=== PATIENT | female | born 1990 | race Caucasian/White ===

== ENCOUNTER 2025-04-12 13:24 | Emergency (ER) | payer OTHER, SELFPAY ==
[2025-04-12 13:26] VITALS: BP 118/69
--- NOTE | 2025-04-12 14:17 | ED.GENMED ---
History of Present Illness
General
Chief Complaint: Musculo-Skeletal Complaint
Source: patient
Time Seen by Provider: 04/12/25 13:56
History of Present Illness
History of Present Illness:
This patient is a 34-year-old female presents emergency department with complaints of 'tight' feeling the left Achilles area that first developed while Dipti dancing last week. She denies any specific penetrating trauma, 'pop', or sudden onset of
pain. Rather, the pain has been gradual but persistent. She is able to stand and walk without difficulty. Symptoms feel very consistent with prior episodes of Achilles tendinitis. She denies other complaints.
Past History
Past History
ED Past Medical History: None
ED Past Surgical History: None
Social History
Tobacco: Non-smoker
Alcohol: None
Drug: None
Living: alone
Employment: Employed
Phy Exam
Physical Exam
Physical Exam:
GENERAL: Alert , in no apparent distress
NECK: Supple
ENT: o/p clr, mmm.
CARDIAC: Regular rate and rhythm .
LUNGS: Clear breath sounds bilaterally, no acute respiratory distress, no wheezes/rales/rhonchi
NEUROLOGICAL: Alert and oriented, no focal neuro deficits
SKIN: Warm and dry, skin intact.
MUSCULOSKELETAL: No edema, well perfused. Nl rod's test, no specific ttp at achilles insertion, no skin changes There is sl ttp at bilat aspect mid Achiles tendon without swelling or other abnl
PSYCH: Normal and appropriate interaction.
Course
Orders/Labs/Results
Orders:
Orders
04/12/25 14:21
Ibuprofen [Motrin] 800 mg PO NOW STA
Vital Signs
Initial and Last Documented VS:
Initial Vital Signs
Temp Pulse Resp BP Pulse Ox
98 F 58 16 118/69 95
04/12/25 13:26 04/12/25 13:26 04/12/25 13:26 04/12/25 13:26 04/12/25 13:26
Last Documented Vital Signs
Temp Pulse Resp BP Pulse Ox
98 F 58 16 118/69 95
04/12/25 13:26 04/12/25 13:26 04/12/25 13:26 04/12/25 13:26 04/12/25 14:21
*Pulse Oximetry
SaO2: 95
Oxygen Mode of Delivery: Room air
Patient hypoxic: no
*Critical Care Note
Total Time (30-74mins, 75-104mins- exclusive of procedures): Not Applicable
Update Note
Update Note:
Patient presents to the Emergency Department with ___left Achilles area pain
Number and Complexity of Problems Addressed at the Encounter
� Chronic conditions affecting care:
� Acute Exacerbation and/or Progression of Chronic Illness:
� Differential Diagnosis includes: But not limited to Achilles tendon rupture/tear, Achilles tendinitis, heel injury/fracture, etc.
Amount and/or Complexity of Data to be Reviewed and Analyzed
� I performed an independent evaluation of and my interpretation is:
EKG:
CT:
Xrays:
Laboratory Studies:
Other:
� Review of other/old records reveals:
� Clinical information was obtained by an independent historian:
� Prescriptions/Medications Considered but not given:
� Further testing considered but not performed:
Risk of Complications and/or Morbidity or Mortality of Patient Management
� Social determinants of health affecting care:
� Discussion with other providers (PCP, Hospitalists, Consultants, etc):
� Escalation of care including admission/observation vs risk of discharge considered: Clinically exam very consistent with Achilles tendinitis. Given no difficulty ambulating, normal Doty test, no pain at level of insertion,
etc. I have low clinical suspicion for tendon tear. No bony tenderness to suggest bony injury. Patient will be advised to wear a walking boot and close Ortho follow-up. She thinks she has 1 at home and will verify before we discharge her.
ED Attending Note
-
Portions of this chart may have been created with voice recognition software.� Occasional wrong word or��sound alike� substitutions may have occurred due to the inherent limitations of voice recognition software.
Discharge Plan
Departure
Patient Disposition: Home (Routine Discharge)
Date of Disposition: 04/12/25
Time of Disposition: 14:20
Patient with high blood pressure during this ER visit?: No
Condition: Good
Discharge Problem:
Achilles tendinitis
Instructions: Achilles Tendinopathy (DC), Achilles Tendinopathy Exercises
Prescriptions:
No Action
Spironolactone
1 tab PO DAILY
Referrals:
Kris Loyd MD [Active, Orthopedics] - Next open appointment
Activity Restrictions/Additional Instructions:
IF YOU DEVELOP INCREASING OR NEW PAIN, SWELLING, REDNESS, NUMBNESS, DIFFICULTY WALKING OR STANDING, OR OTHER WORRISOME SIGNS, PLEASE RETURN TO THE ER IMMEDIATELY!
Interventions
Interventions:
*Risk Screen - Suicide Last Done: 04/12/25 13:27
*General Assessment Last Done: 04/12/25 15:14
*Neglect/Abuse Screening Last Done: 04/12/25 13:27
*ED- Fall Risk Assessment Last Done: 04/12/25 15:14
*ED COVID-19 Vaccine History Last Done: 04/12/25 15:14
*Nursing Disposition Last Done: 04/12/25 15:14
ED-Musculoskeletal Assessment Last Done: 04/12/25 15:10
Discharge Date and Time
Discharge Date/Time: 04/12/25 15:16
Print Language: [email or web address]
[2025-04-12] MEDS: MOTRIN 800 MG PO (14:56)
== END 2025-04-12 15:16 | disposition home or self-care (01) ==
LOC: EMR 13:24
PROVIDERS: EMERGENCY PHYSICIAN Emergency Medicine; FAMILY PHYSICIAN Student in an Organized Health Care Education/Training Program
DX: M76.62 Achilles tendinitis, left leg (principal)
CPT/HCPCS: 99282